=== PATIENT | female | born 1995 | race Caucasian/White ===

== ENCOUNTER 2020-10-20 14:32 | Inpatient (IN) | payer OTHER ==
[2020-10-20 16:20] VITALS: BMI 37.5
[2020-10-20] MEDS ORDERED: MAGNESIUM CITRATE 300 ML BOTTLE PO PRN (19:34)
[2020-10-20] MEDS ORDERED: MAG HYDROX/AL HYDROX/SIMETH 30 ML UNIT-DOSE CUP PO PRN (19:34)
[2020-10-20] MEDS ORDERED: MAGNESIUM HYDROX 2400MG/30ML ORAL SUSPENSION 30 ML CUP PO PRN (19:34)
[2020-10-20] MEDS ORDERED: ONDANSETRON *ODT* 4 MG TABLET SL PRN (19:34)
[2020-10-20] MEDS ORDERED: MENTHOL/PHENOL 1 EACH UD MM PRN (19:34)
[2020-10-20] MEDS ORDERED: ACETAMINOPHEN 325 MG TABLET (FP) PO PRN ×2 (19:34)
[2020-10-20] MEDS ORDERED: NICOTINE POLACRILEX 2 MG GUM BUC PRN (19:34)
[2020-10-20] MEDS ORDERED: BISMUTH SUBSALICYLATE 524 MG/30 ML PO PRN (19:34)
[2020-10-21] MEDS: PRENATAL VITAMINS W/ FOLIC ACID TABLET (FP) PO SCH ×2 (02:06→10:47)
[2020-10-21] MEDS: DOCUSATE SODIUM 100 MG CAPSULE (FP) PO SCH ×4 (02:06→22:03)
[2020-10-21] MEDS: NICOTINE 14 MG/24 HOURS TOPICAL PATCH TD SCH ×2 (02:06→10:47)
[2020-10-21] MEDS: MELATONIN 5 MG TABLETS PO SCH ×2 (02:06→22:02)
[2020-10-21] MEDS ORDERED: TUBERCULIN PPD 5 TU/0.1ML VIAL ID ONE (02:10)
[2020-10-21] MEDS: hydrOXYzine PAMOATE 25 MG CAPSULE (FP) PO SCH ×3 (02:17→10:49)
[2020-10-21] MEDS: THIAMINE HCL 100 MG TABLET (FP) PO SCH ×2 (02:17→22:02)
[2020-10-21] MEDS: diazePAM 5 MG TABLET PO SCH ×5 (02:17→22:02)
[2020-10-21] MEDS ORDERED: METHADONE HCL 10 MG TABLET PO SCH (07:30)
[2020-10-21] MEDS ORDERED: METHADONE 40 MG, METHADONE 30 MG PO ONE (08:15)
[2020-10-21] MEDS ORDERED: METHADONE HCL 10 MG TABLET ONE (09:52)
[2020-10-21] MEDS ORDERED: METHADONE HCL 40 MG DISPERSABLE TABLET ONE (09:52)
[2020-10-21] MEDS ORDERED: METHADONE HCL 10 MG TABLET (FOR DETOX USE ONLY) PO SCH (10:00)
[2020-10-21] MEDS: POLYETHYLENE GLYCOL 3350 119 GM BTL PO SCH (11:00)
[2020-10-21 11:34] LABS: HEMATOCRIT 34.6 % (32.4-45.2); HEMOGLOBIN 11.3 GM/dL (10.7-15.3); MCH 28.9 pg (25.7-33.7); MCHC 32.6 g/dl (32.0-36.0); MEAN CELL VOLUME 88.7 fl (80-96); MEAN PLT VOLUME 10.1 fl (7.5-11.1); PLATELET COUNT 343 K/MM3 (134-434); RDW 16.4 % (11.6-15.6); WHITE BLOOD COUNT 6.1 K/mm3 (4.0-10.0)
[2020-10-21 11:41] LABS: ALBUMIN 3.3 g/dl (3.4-5.0)
[2020-10-21 11:43] LABS: BILIRUBIN,TOTAL 0.2 mg/dL (0.2-1); BLOOD UREA NITROGEN 14.8 mg/dL (7-18); TOT PROT 7.2 g/dl (6.4-8.2)
[2020-10-21 11:44] LABS: CALCIUM 9.4 mg/dL (8.5-10.1)
[2020-10-21 11:45] LABS: CREATININE 0.9 mg/dL (0.55-1.3)
[2020-10-21] MEDS ORDERED: hydrOXYzine PAMOATE 25 MG CAPSULE (FP) PO PRN (12:15)
[2020-10-21] MEDS: QUEtiapine FUMARATE 100 MG TABLET (FP) PO SCH (22:02)
[2020-10-22] MEDS ORDERED: METHADONE HCL 10 MG TABLET ONE (04:04)
[2020-10-22] MEDS ORDERED: METHADONE HCL 40 MG DISPERSABLE TABLET ONE (04:05)
[2020-10-22] MEDS: diazePAM 5 MG TABLET PO SCH ×3 (06:01→22:25)
[2020-10-22] MEDS: METHOCARBAMOL 500 MG TABLET PO PRN ×2 (06:02→13:19)
[2020-10-22] MEDS: METHADONE 40 MG, METHADONE 30 MG PO SCH (06:04)
[2020-10-22] MEDS: DOCUSATE SODIUM 100 MG CAPSULE (FP) PO SCH ×3 (06:52→22:39)
[2020-10-22] MEDS: POLYETHYLENE GLYCOL 3350 119 GM BTL PO SCH (09:59)
[2020-10-22] MEDS: diazePAM 5 MG TABLET PO PRN ×2 (10:00→17:58)
[2020-10-22] MEDS: FLUoxetine HCL 20 MG CAPSULE PO SCH (10:00)
[2020-10-22] MEDS: PRENATAL VITAMINS W/ FOLIC ACID TABLET (FP) PO SCH (10:00)
[2020-10-22] MEDS: NICOTINE 14 MG/24 HOURS TOPICAL PATCH TD SCH (10:01)
[2020-10-22] MEDS: MELATONIN 5 MG TABLETS PO SCH (22:25)
[2020-10-22] MEDS: QUEtiapine FUMARATE 100 MG TABLET (FP) PO SCH (22:25)
[2020-10-22] MEDS: THIAMINE HCL 100 MG TABLET (FP) PO SCH (22:25)
[2020-10-23] MEDS ORDERED: METHADONE HCL 10 MG TABLET ONE (04:18)
[2020-10-23] MEDS ORDERED: METHADONE HCL 40 MG DISPERSABLE TABLET ONE (04:18)
[2020-10-23] MEDS: diazePAM 5 MG TABLET PO SCH ×2 (05:51→18:49)
[2020-10-23] MEDS: METHADONE 40 MG, METHADONE 30 MG PO SCH (05:51)
[2020-10-23] MEDS: METHOCARBAMOL 500 MG TABLET PO PRN (05:52)
[2020-10-23] MEDS: DOCUSATE SODIUM 100 MG CAPSULE (FP) PO SCH ×3 (05:54→21:57)
[2020-10-23] MEDS: POLYETHYLENE GLYCOL 3350 119 GM BTL PO SCH (10:17)
[2020-10-23] MEDS: FLUoxetine HCL 20 MG CAPSULE PO SCH (10:17)
[2020-10-23] MEDS: PRENATAL VITAMINS W/ FOLIC ACID TABLET (FP) PO SCH (10:17)
[2020-10-23] MEDS: NICOTINE 14 MG/24 HOURS TOPICAL PATCH TD SCH (10:18)
[2020-10-23] MEDS: diazePAM 5 MG TABLET PO PRN ×2 (10:19→14:04)
[2020-10-23] MEDS: THIAMINE HCL 100 MG TABLET (FP) PO SCH (21:55)
[2020-10-23] MEDS: MELATONIN 5 MG TABLETS PO SCH (21:55)
[2020-10-23] MEDS: QUEtiapine FUMARATE 100 MG TABLET (FP) PO SCH (21:55)
[2020-10-24] MEDS ORDERED: METHADONE HCL 10 MG TABLET ONE (04:38)
[2020-10-24] MEDS ORDERED: METHADONE HCL 40 MG DISPERSABLE TABLET ONE (04:39)
[2020-10-24] MEDS ORDERED: diazePAM 5 MG TABLET PO ONE (06:00)
[2020-10-24] MEDS: METHADONE 40 MG, METHADONE 30 MG PO SCH (07:10)
[2020-10-24] MEDS: METHOCARBAMOL 500 MG TABLET PO PRN (07:11)
[2020-10-24] MEDS: DOCUSATE SODIUM 100 MG CAPSULE (FP) PO SCH ×2 (07:11→13:12)
[2020-10-24] MEDS: FLUoxetine HCL 20 MG CAPSULE PO SCH (09:39)
[2020-10-24] MEDS: PRENATAL VITAMINS W/ FOLIC ACID TABLET (FP) PO SCH (09:39)
[2020-10-24] MEDS: NICOTINE 14 MG/24 HOURS TOPICAL PATCH TD SCH (09:39)
[2020-10-24] MEDS: POLYETHYLENE GLYCOL 3350 119 GM BTL PO SCH (09:39)
[2020-10-24 17:29] VITALS: BP 104/65; PULSE 65; TEMP 97.8
== END 2020-10-24 18:47 | disposition other institution (70) | DRG 561 ==
LOC: YASAS 14:32 → Y3N 10-21 00:26
PROVIDERS: ADMIT Allergy & Immunology; ATTEND Allergy & Immunology
PROC: HZ2ZZZZ Detoxification Services for Substance Abuse Treatment (ICD-10-PCS; principal; 2020-10-21)
DX: O90.9 Complication of the puerperium, unspecified (principal); F13.230 Sedative, hypnotic or anxiolytic dependence with withdrawal, uncomplicated; F11.20 Opioid dependence, uncomplicated; F17.210 Nicotine dependence, cigarettes, uncomplicated; F95.2 Tourette's disorder; F41.8 Other specified anxiety disorders; O86.01 Infection of obstetric surgical wound, superficial incisional site; L30.9 Dermatitis, unspecified; Z62.810 Personal history of physical and sexual abuse in childhood; Z88.0 Allergy status to penicillin
CPT/HCPCS: 36415; 80053; 81025; 85027; 86780; C9803; U0003; U0005

== ENCOUNTER 2020-10-20 21:40 | Emergency (ER) | payer OTHER ==
[2020-10-20 21:55] VITALS: BMI 36.7
[2020-10-20 23:13] VITALS: BP 115/66; PULSE 61; TEMP 97.7
== END 2020-10-20 23:14 ==
LOC: JER 21:40
DX: Z48.00 Encounter for change or removal of nonsurgical wound dressing (principal)
CPT/HCPCS: 99281-25

== ENCOUNTER 2020-10-24 18:50 | Inpatient (IN) | payer OTHER ==
[2020-10-25] MEDS ORDERED: P-EPHED 60MG/TRIPROLIDI 2.5MG TABLET PO PRN (00:59)
[2020-10-25] MEDS ORDERED: ACETAMINOPHEN 325 MG TABLET (FP) PO PRN (00:59)
[2020-10-25] MEDS ORDERED: MENTHOL/PHENOL 1 EACH UD MM PRN (00:59)
[2020-10-25] MEDS ORDERED: MAGNESIUM HYDROX 2400MG/30ML ORAL SUSPENSION 30 ML CUP PO PRN (00:59)
[2020-10-25] MEDS ORDERED: MAGNESIUM CITRATE 300 ML BOTTLE PO PRN (00:59)
[2020-10-25] MEDS ORDERED: guaiFENesin 200 MG/10 ML 10 ML UNIT-DOSE CUPS PO PRN (00:59)
[2020-10-25] MEDS ORDERED: NICOTINE POLACRILEX 2 MG GUM BUC PRN (00:59)
[2020-10-25] MEDS ORDERED: MAG HYDROX/AL HYDROX/SIMETH 30 ML UNIT-DOSE CUP PO PRN (00:59)
[2020-10-25] MEDS ORDERED: LOPERAMIDE HCL 2 MG CAPSULE PO PRN (00:59)
[2020-10-25] MEDS ORDERED: METHADONE HCL 40 MG DISPERSABLE TABLET ONE (06:20)
[2020-10-25] MEDS ORDERED: METHADONE HCL 10 MG TABLET ONE (06:20)
[2020-10-25] MEDS: METHADONE 40 MG, METHADONE 30 MG PO SCH (07:01)
[2020-10-25] MEDS: PRENATAL VITAMINS W/ FOLIC ACID TABLET (FP) PO SCH (10:04)
[2020-10-25] MEDS: hydrOXYzine PAMOATE 25 MG CAPSULE (FP) PO PRN (10:05)
[2020-10-25] MEDS ORDERED: MASKS NR ONE (10:06)
[2020-10-25] MEDS: NICOTINE 14 MG/24 HOURS TOPICAL PATCH TD SCH (10:59)
[2020-10-25] MEDS: FLUoxetine HCL 20 MG CAPSULE PO SCH (13:32)
[2020-10-25] MEDS: THIAMINE HCL 100 MG TABLET (FP) PO SCH (21:32)
[2020-10-25] MEDS: MELATONIN 5 MG TABLETS PO SCH (21:32)
[2020-10-25] MEDS: QUEtiapine FUMARATE 100 MG TABLET (FP) PO SCH (21:32)
[2020-10-26] MEDS ORDERED: METHADONE HCL 10 MG TABLET ONE (02:19)
[2020-10-26] MEDS ORDERED: METHADONE HCL 40 MG DISPERSABLE TABLET ONE (02:20)
[2020-10-26] MEDS: METHADONE 40 MG, METHADONE 30 MG PO SCH (06:23)
[2020-10-26] MEDS: PRENATAL VITAMINS W/ FOLIC ACID TABLET (FP) PO SCH (10:44)
[2020-10-26] MEDS: NICOTINE 14 MG/24 HOURS TOPICAL PATCH TD SCH (10:44)
[2020-10-26] MEDS: FLUoxetine HCL 20 MG CAPSULE PO SCH (10:45)
[2020-10-26] MEDS: IBUPROFEN 400 MG TABLET (FP) PO PRN (10:45)
[2020-10-26] MEDS: hydrOXYzine PAMOATE 25 MG CAPSULE (FP) PO PRN (10:45)
[2020-10-26] MEDS: MELATONIN 5 MG TABLETS PO SCH (21:43)
[2020-10-26] MEDS: QUEtiapine FUMARATE 100 MG TABLET (FP) PO SCH (21:44)
[2020-10-26] MEDS: THIAMINE HCL 100 MG TABLET (FP) PO SCH (21:44)
[2020-10-27] MEDS ORDERED: METHADONE HCL 10 MG TABLET ONE (03:21)
[2020-10-27] MEDS ORDERED: METHADONE HCL 40 MG DISPERSABLE TABLET ONE (03:22)
[2020-10-27] MEDS: METHADONE 40 MG, METHADONE 30 MG PO SCH (06:26)
[2020-10-27] MEDS: PRENATAL VITAMINS W/ FOLIC ACID TABLET (FP) PO SCH (10:30)
[2020-10-27] MEDS: FLUoxetine HCL 20 MG CAPSULE PO SCH (10:31)
[2020-10-27] MEDS: hydrOXYzine PAMOATE 25 MG CAPSULE (FP) PO PRN (10:31)
[2020-10-27] MEDS: IBUPROFEN 400 MG TABLET (FP) PO PRN (10:31)
[2020-10-27] MEDS: NICOTINE 14 MG/24 HOURS TOPICAL PATCH TD SCH (10:31)
[2020-10-27] MEDS: MELATONIN 5 MG TABLETS PO SCH (21:47)
[2020-10-27] MEDS: THIAMINE HCL 100 MG TABLET (FP) PO SCH (21:47)
[2020-10-27] MEDS: QUEtiapine FUMARATE 100 MG TABLET (FP) PO SCH (21:48)
[2020-10-28] MEDS ORDERED: METHADONE HCL 10 MG TABLET ONE (03:26)
[2020-10-28] MEDS ORDERED: METHADONE HCL 40 MG DISPERSABLE TABLET ONE (03:26)
[2020-10-28] MEDS: METHADONE 40 MG, METHADONE 30 MG PO SCH (06:33)
[2020-10-28] MEDS: FLUoxetine HCL 20 MG CAPSULE PO SCH (10:20)
[2020-10-28] MEDS: NICOTINE 14 MG/24 HOURS TOPICAL PATCH TD SCH (10:20)
[2020-10-28] MEDS: PRENATAL VITAMINS W/ FOLIC ACID TABLET (FP) PO SCH (10:20)
[2020-10-28] MEDS: THIAMINE HCL 100 MG TABLET (FP) PO SCH (21:43)
[2020-10-28] MEDS: QUEtiapine FUMARATE 100 MG TABLET (FP) PO SCH (21:43)
[2020-10-28] MEDS: MELATONIN 5 MG TABLETS PO SCH (21:43)
[2020-10-29] MEDS ORDERED: METHADONE HCL 10 MG TABLET ONE (03:28)
[2020-10-29] MEDS ORDERED: METHADONE HCL 40 MG DISPERSABLE TABLET ONE (03:28)
[2020-10-29] MEDS: METHADONE 40 MG, METHADONE 30 MG PO SCH (06:22)
[2020-10-29] MEDS: NICOTINE 14 MG/24 HOURS TOPICAL PATCH TD SCH (10:23)
[2020-10-29] MEDS: FLUoxetine HCL 20 MG CAPSULE PO SCH (10:23)
[2020-10-29] MEDS: PRENATAL VITAMINS W/ FOLIC ACID TABLET (FP) PO SCH (10:23)
[2020-10-29] MEDS: hydrOXYzine PAMOATE 25 MG CAPSULE (FP) PO PRN ×2 (10:25→17:08)
[2020-10-29] MEDS: QUEtiapine FUMARATE 100 MG TABLET (FP) PO SCH (21:35)
[2020-10-29] MEDS: THIAMINE HCL 100 MG TABLET (FP) PO SCH (21:35)
[2020-10-29] MEDS: MELATONIN 5 MG TABLETS PO SCH (21:35)
[2020-10-30] MEDS ORDERED: METHADONE HCL 10 MG TABLET ONE (06:26)
[2020-10-30] MEDS: METHADONE 40 MG, METHADONE 30 MG PO SCH (06:27)
[2020-10-30] MEDS ORDERED: METHADONE HCL 40 MG DISPERSABLE TABLET ONE (06:27)
[2020-10-30] MEDS: FLUoxetine HCL 20 MG CAPSULE PO SCH (10:45)
[2020-10-30] MEDS: hydrOXYzine PAMOATE 25 MG CAPSULE (FP) PO PRN (10:45)
[2020-10-30] MEDS: PRENATAL VITAMINS W/ FOLIC ACID TABLET (FP) PO SCH (10:45)
[2020-10-30] MEDS: NICOTINE 14 MG/24 HOURS TOPICAL PATCH TD SCH (10:45)
[2020-10-30] MEDS ORDERED: MASKS NR ONE (12:51)
[2020-10-30] MEDS: THIAMINE HCL 100 MG TABLET (FP) PO SCH (21:33)
[2020-10-30] MEDS: QUEtiapine FUMARATE 100 MG TABLET (FP) PO SCH (21:33)
[2020-10-30] MEDS: MELATONIN 5 MG TABLETS PO SCH (21:33)
[2020-10-31] MEDS ORDERED: METHADONE HCL 40 MG DISPERSABLE TABLET ONE (04:46)
[2020-10-31] MEDS ORDERED: METHADONE HCL 10 MG TABLET ONE (04:46)
[2020-10-31] MEDS: METHADONE 40 MG, METHADONE 30 MG PO SCH (06:36)
[2020-10-31] MEDS: FLUoxetine HCL 20 MG CAPSULE PO SCH (10:29)
[2020-10-31] MEDS: PRENATAL VITAMINS W/ FOLIC ACID TABLET (FP) PO SCH (10:29)
[2020-10-31] MEDS: NICOTINE 14 MG/24 HOURS TOPICAL PATCH TD SCH (10:29)
[2020-10-31] MEDS: hydrOXYzine PAMOATE 25 MG CAPSULE (FP) PO PRN ×2 (10:29→19:05)
[2020-10-31] MEDS: QUEtiapine FUMARATE 100 MG TABLET (FP) PO SCH (21:21)
[2020-10-31] MEDS: MELATONIN 5 MG TABLETS PO SCH (21:21)
[2020-10-31] MEDS: THIAMINE HCL 100 MG TABLET (FP) PO SCH (21:21)
[2020-11-01] MEDS ORDERED: METHADONE HCL 10 MG TABLET ONE (05:12)
[2020-11-01] MEDS ORDERED: METHADONE HCL 40 MG DISPERSABLE TABLET ONE (05:12)
[2020-11-01] MEDS: METHADONE 40 MG, METHADONE 30 MG PO SCH (06:28)
[2020-11-01] MEDS: NICOTINE 14 MG/24 HOURS TOPICAL PATCH TD SCH (10:05)
[2020-11-01] MEDS: FLUoxetine HCL 20 MG CAPSULE PO SCH (10:05)
[2020-11-01] MEDS: PRENATAL VITAMINS W/ FOLIC ACID TABLET (FP) PO SCH (10:05)
[2020-11-01] MEDS: hydrOXYzine PAMOATE 25 MG CAPSULE (FP) PO PRN (10:06)
[2020-11-01] MEDS: QUEtiapine FUMARATE 100 MG TABLET (FP) PO SCH (21:21)
[2020-11-01] MEDS: THIAMINE HCL 100 MG TABLET (FP) PO SCH (21:21)
[2020-11-01] MEDS: MELATONIN 5 MG TABLETS PO SCH (21:21)
[2020-11-02] MEDS ORDERED: METHADONE HCL 10 MG TABLET ONE (03:28)
[2020-11-02] MEDS ORDERED: METHADONE HCL 40 MG DISPERSABLE TABLET ONE (03:28)
[2020-11-02] MEDS: METHADONE 40 MG, METHADONE 30 MG PO SCH (06:06)
[2020-11-02] MEDS: PRENATAL VITAMINS W/ FOLIC ACID TABLET (FP) PO SCH (10:05)
[2020-11-02] MEDS: FLUoxetine HCL 20 MG CAPSULE PO SCH (10:05)
[2020-11-02] MEDS: NICOTINE 14 MG/24 HOURS TOPICAL PATCH TD SCH (10:05)
[2020-11-02] MEDS: hydrOXYzine PAMOATE 25 MG CAPSULE (FP) PO PRN ×2 (10:06→21:17)
[2020-11-02] MEDS: QUEtiapine FUMARATE 100 MG TABLET (FP) PO SCH (21:16)
[2020-11-02] MEDS: THIAMINE HCL 100 MG TABLET (FP) PO SCH (21:16)
[2020-11-02] MEDS: MELATONIN 5 MG TABLETS PO SCH (21:16)
[2020-11-03] MEDS ORDERED: METHADONE HCL 10 MG TABLET ONE (03:50)
[2020-11-03] MEDS ORDERED: METHADONE HCL 40 MG DISPERSABLE TABLET ONE (03:50)
[2020-11-03] MEDS: METHADONE 40 MG, METHADONE 30 MG PO SCH (06:27)
[2020-11-03] MEDS: NICOTINE 14 MG/24 HOURS TOPICAL PATCH TD SCH (10:11)
[2020-11-03] MEDS: PRENATAL VITAMINS W/ FOLIC ACID TABLET (FP) PO SCH (10:11)
[2020-11-03] MEDS: FLUoxetine HCL 20 MG CAPSULE PO SCH (10:12)
[2020-11-03] MEDS: hydrOXYzine PAMOATE 25 MG CAPSULE (FP) PO PRN ×2 (10:12→21:38)
[2020-11-03] MEDS: QUEtiapine FUMARATE 100 MG TABLET (FP) PO SCH (21:38)
[2020-11-03] MEDS: THIAMINE HCL 100 MG TABLET (FP) PO SCH (21:38)
[2020-11-03] MEDS: MELATONIN 5 MG TABLETS PO SCH (21:38)
[2020-11-04] MEDS ORDERED: METHADONE HCL 10 MG TABLET ONE (05:31)
[2020-11-04] MEDS ORDERED: METHADONE HCL 40 MG DISPERSABLE TABLET ONE (05:31)
[2020-11-04] MEDS: METHADONE 40 MG, METHADONE 30 MG PO SCH (06:33)
[2020-11-04] MEDS: PRENATAL VITAMINS W/ FOLIC ACID TABLET (FP) PO SCH (10:38)
[2020-11-04] MEDS: NICOTINE 14 MG/24 HOURS TOPICAL PATCH TD SCH (10:38)
[2020-11-04] MEDS: FLUoxetine HCL 20 MG CAPSULE PO SCH (10:39)
[2020-11-04] MEDS ORDERED: MASKS NR ONE (10:39)
[2020-11-04] MEDS: hydrOXYzine PAMOATE 25 MG CAPSULE (FP) PO PRN ×2 (10:39→17:53)
[2020-11-04] MEDS: THIAMINE HCL 100 MG TABLET (FP) PO SCH (21:24)
[2020-11-04] MEDS: MELATONIN 5 MG TABLETS PO SCH (21:25)
[2020-11-04] MEDS: QUEtiapine FUMARATE 100 MG TABLET (FP) PO SCH (21:25)
[2020-11-05] MEDS ORDERED: METHADONE HCL 10 MG TABLET ONE (04:20)
[2020-11-05] MEDS ORDERED: METHADONE HCL 40 MG DISPERSABLE TABLET ONE (04:21)
[2020-11-05] MEDS: METHADONE 40 MG, METHADONE 30 MG PO SCH (06:36)
[2020-11-05] MEDS: hydrOXYzine PAMOATE 25 MG CAPSULE (FP) PO PRN ×2 (06:38→17:14)
[2020-11-05] MEDS: FLUoxetine HCL 20 MG CAPSULE PO SCH (10:10)
[2020-11-05] MEDS: PRENATAL VITAMINS W/ FOLIC ACID TABLET (FP) PO SCH (10:10)
[2020-11-05] MEDS: NICOTINE 14 MG/24 HOURS TOPICAL PATCH TD SCH (10:11)
[2020-11-05] MEDS: IBUPROFEN 400 MG TABLET (FP) PO PRN ×2 (10:13→17:46)
[2020-11-05] MEDS: THIAMINE HCL 100 MG TABLET (FP) PO SCH (21:20)
[2020-11-05] MEDS: QUEtiapine FUMARATE 100 MG TABLET (FP) PO SCH (21:20)
[2020-11-05] MEDS: MELATONIN 5 MG TABLETS PO SCH (21:21)
[2020-11-06] MEDS ORDERED: METHADONE HCL 40 MG DISPERSABLE TABLET ONE (03:19)
[2020-11-06] MEDS ORDERED: METHADONE HCL 10 MG TABLET ONE (03:19)
[2020-11-06] MEDS: METHADONE 40 MG, METHADONE 30 MG PO SCH (06:30)
[2020-11-06] MEDS: hydrOXYzine PAMOATE 25 MG CAPSULE (FP) PO PRN ×3 (06:31→18:51)
[2020-11-06] MEDS: IBUPROFEN 400 MG TABLET (FP) PO PRN (06:32)
[2020-11-06] MEDS: FLUoxetine HCL 20 MG CAPSULE PO SCH (10:26)
[2020-11-06] MEDS: NICOTINE 14 MG/24 HOURS TOPICAL PATCH TD SCH (10:26)
[2020-11-06] MEDS: PRENATAL VITAMINS W/ FOLIC ACID TABLET (FP) PO SCH (10:26)
[2020-11-06] MEDS: THIAMINE HCL 100 MG TABLET (FP) PO SCH (21:20)
[2020-11-06] MEDS: QUEtiapine FUMARATE 100 MG TABLET (FP) PO SCH (21:20)
[2020-11-06] MEDS: MELATONIN 5 MG TABLETS PO SCH (21:20)
[2020-11-07] MEDS ORDERED: METHADONE HCL 10 MG TABLET ONE (05:03)
[2020-11-07] MEDS ORDERED: METHADONE HCL 40 MG DISPERSABLE TABLET ONE (05:03)
[2020-11-07] MEDS: METHADONE 40 MG, METHADONE 30 MG PO SCH (06:21)
[2020-11-07] MEDS: PRENATAL VITAMINS W/ FOLIC ACID TABLET (FP) PO SCH (09:14)
[2020-11-07] MEDS: NICOTINE 14 MG/24 HOURS TOPICAL PATCH TD SCH (09:15)
[2020-11-07] MEDS: FLUoxetine HCL 20 MG CAPSULE PO SCH (09:15)
[2020-11-07] MEDS: hydrOXYzine PAMOATE 25 MG CAPSULE (FP) PO PRN ×2 (09:16→17:18)
[2020-11-07] MEDS ORDERED: NICOTINE 14 MG/24 HOURS TOPICAL PATCH TD ONE (12:45)
[2020-11-07] MEDS: MELATONIN 5 MG TABLETS PO SCH (21:29)
[2020-11-07] MEDS: THIAMINE HCL 100 MG TABLET (FP) PO SCH (21:29)
[2020-11-07] MEDS: QUEtiapine FUMARATE 100 MG TABLET (FP) PO SCH (21:29)
[2020-11-08] MEDS ORDERED: METHADONE HCL 40 MG DISPERSABLE TABLET ONE (04:09)
[2020-11-08] MEDS ORDERED: METHADONE HCL 10 MG TABLET ONE (04:09)
[2020-11-08] MEDS: METHADONE 40 MG, METHADONE 30 MG PO SCH (06:27)
[2020-11-08] MEDS: NICOTINE 14 MG/24 HOURS TOPICAL PATCH TD SCH (10:16)
[2020-11-08] MEDS: PRENATAL VITAMINS W/ FOLIC ACID TABLET (FP) PO SCH (10:16)
[2020-11-08] MEDS: hydrOXYzine PAMOATE 25 MG CAPSULE (FP) PO PRN ×2 (10:17→19:27)
[2020-11-08] MEDS: IBUPROFEN 600 MG TABLET (FP) PO PRN (10:17)
[2020-11-08] MEDS: FLUoxetine HCL 20 MG CAPSULE PO SCH (10:17)
[2020-11-08] MEDS: THIAMINE HCL 100 MG TABLET (FP) PO SCH (21:34)
[2020-11-08] MEDS: MELATONIN 5 MG TABLETS PO SCH (21:34)
[2020-11-08] MEDS: QUEtiapine FUMARATE 100 MG TABLET (FP) PO SCH (21:34)
[2020-11-09] MEDS ORDERED: METHADONE HCL 40 MG DISPERSABLE TABLET ONE (02:13)
[2020-11-09] MEDS ORDERED: METHADONE HCL 10 MG TABLET ONE (02:13)
[2020-11-09] MEDS: METHADONE 40 MG, METHADONE 30 MG PO SCH (06:25)
[2020-11-09] MEDS: hydrOXYzine PAMOATE 25 MG CAPSULE (FP) PO PRN ×3 (10:14→22:51)
[2020-11-09] MEDS: NICOTINE 14 MG/24 HOURS TOPICAL PATCH TD SCH (10:14)
[2020-11-09] MEDS: PRENATAL VITAMINS W/ FOLIC ACID TABLET (FP) PO SCH (10:14)
[2020-11-09] MEDS: FLUoxetine HCL 20 MG CAPSULE PO SCH (10:14)
[2020-11-09] MEDS ORDERED: COLLOIDAL OATMEAL 1 BAR EACH TP PRN (12:11)
[2020-11-09] MEDS: IBUPROFEN 600 MG TABLET (FP) PO PRN (16:01)
[2020-11-09] MEDS: THIAMINE HCL 100 MG TABLET (FP) PO SCH (21:38)
[2020-11-09] MEDS: QUEtiapine FUMARATE 100 MG TABLET (FP) PO SCH (21:38)
[2020-11-09] MEDS: MELATONIN 5 MG TABLETS PO SCH (21:39)
[2020-11-10] MEDS ORDERED: METHADONE HCL 10 MG TABLET ONE (05:06)
[2020-11-10] MEDS ORDERED: METHADONE HCL 40 MG DISPERSABLE TABLET ONE (05:07)
[2020-11-10] MEDS: METHADONE 40 MG, METHADONE 30 MG PO SCH (06:42)
[2020-11-10] MEDS: FLUoxetine HCL 20 MG CAPSULE PO SCH (10:14)
[2020-11-10] MEDS: PRENATAL VITAMINS W/ FOLIC ACID TABLET (FP) PO SCH (10:14)
[2020-11-10] MEDS: NICOTINE 14 MG/24 HOURS TOPICAL PATCH TD SCH (10:14)
[2020-11-10] MEDS: hydrOXYzine PAMOATE 25 MG CAPSULE (FP) PO PRN ×2 (10:15→18:34)
[2020-11-10] MEDS: THIAMINE HCL 100 MG TABLET (FP) PO SCH (21:56)
[2020-11-10] MEDS: QUEtiapine FUMARATE 200 MG TABLET PO SCH (21:56)
[2020-11-10] MEDS: SUVOREXANT 5 MG TABLET PO PRN (21:59)
[2020-11-11] MEDS ORDERED: METHADONE HCL 10 MG TABLET ONE (05:23)
[2020-11-11] MEDS ORDERED: METHADONE HCL 40 MG DISPERSABLE TABLET ONE (05:23)
[2020-11-11] MEDS: METHADONE 40 MG, METHADONE 30 MG PO SCH (06:19)
[2020-11-11] MEDS: FLUoxetine HCL 10 MG CAPSULE PO SCH (10:07)
[2020-11-11] MEDS: PRENATAL VITAMINS W/ FOLIC ACID TABLET (FP) PO SCH (10:07)
[2020-11-11] MEDS: NICOTINE 14 MG/24 HOURS TOPICAL PATCH TD SCH (10:08)
[2020-11-11] MEDS: hydrOXYzine PAMOATE 25 MG CAPSULE (FP) PO PRN ×2 (10:09→17:58)
[2020-11-11] MEDS: QUEtiapine FUMARATE 200 MG TABLET PO SCH (21:55)
[2020-11-11] MEDS: THIAMINE HCL 100 MG TABLET (FP) PO SCH (21:55)
[2020-11-11] MEDS: SUVOREXANT 5 MG TABLET PO PRN (21:56)
[2020-11-12] MEDS ORDERED: METHADONE HCL 10 MG TABLET ONE (02:55)
[2020-11-12] MEDS ORDERED: METHADONE HCL 40 MG DISPERSABLE TABLET ONE (02:55)
[2020-11-12] MEDS: METHADONE 40 MG, METHADONE 30 MG PO SCH (06:36)
[2020-11-12] MEDS: FLUoxetine HCL 10 MG CAPSULE PO SCH (10:25)
[2020-11-12] MEDS: PRENATAL VITAMINS W/ FOLIC ACID TABLET (FP) PO SCH (10:25)
[2020-11-12] MEDS: hydrOXYzine PAMOATE 25 MG CAPSULE (FP) PO PRN ×3 (10:25→22:05)
[2020-11-12] MEDS: NICOTINE 14 MG/24 HOURS TOPICAL PATCH TD SCH (10:25)
[2020-11-12] MEDS: THIAMINE HCL 100 MG TABLET (FP) PO SCH (22:03)
[2020-11-12] MEDS: QUEtiapine FUMARATE 200 MG TABLET PO SCH (22:03)
[2020-11-12] MEDS: SUVOREXANT 5 MG TABLET PO PRN (22:04)
[2020-11-13] MEDS ORDERED: METHADONE HCL 10 MG TABLET ONE (06:13)
[2020-11-13] MEDS ORDERED: METHADONE HCL 40 MG DISPERSABLE TABLET ONE (06:13)
[2020-11-13] MEDS: METHADONE 40 MG, METHADONE 30 MG PO SCH (06:17)
[2020-11-13] MEDS: PRENATAL VITAMINS W/ FOLIC ACID TABLET (FP) PO SCH (10:12)
[2020-11-13] MEDS: FLUoxetine HCL 10 MG CAPSULE PO SCH (10:12)
[2020-11-13] MEDS: hydrOXYzine PAMOATE 25 MG CAPSULE (FP) PO PRN ×3 (10:14→21:28)
[2020-11-13] MEDS: NICOTINE 14 MG/24 HOURS TOPICAL PATCH TD SCH (10:14)
[2020-11-13] MEDS ORDERED: PT OWN MED DRAWER 7, Y5N ONE (10:31)
[2020-11-13] MEDS: QUEtiapine FUMARATE 200 MG TABLET PO SCH (21:28)
[2020-11-13] MEDS: THIAMINE HCL 100 MG TABLET (FP) PO SCH (21:28)
[2020-11-13] MEDS: SUVOREXANT 5 MG TABLET PO PRN (21:28)
[2020-11-14] MEDS ORDERED: METHADONE HCL 10 MG TABLET ONE (04:31)
[2020-11-14] MEDS ORDERED: METHADONE HCL 40 MG DISPERSABLE TABLET ONE (04:32)
[2020-11-14] MEDS: METHADONE 40 MG, METHADONE 30 MG PO SCH (06:17)
[2020-11-14] MEDS: PRENATAL VITAMINS W/ FOLIC ACID TABLET (FP) PO SCH (10:02)
[2020-11-14] MEDS: hydrOXYzine PAMOATE 25 MG CAPSULE (FP) PO PRN ×2 (10:02→18:34)
[2020-11-14] MEDS: NICOTINE 14 MG/24 HOURS TOPICAL PATCH TD SCH (10:02)
[2020-11-14] MEDS: FLUoxetine HCL 10 MG CAPSULE PO SCH (10:03)
[2020-11-14] MEDS: THIAMINE HCL 100 MG TABLET (FP) PO SCH (21:37)
[2020-11-14] MEDS: SUVOREXANT 5 MG TABLET PO PRN (21:37)
[2020-11-14] MEDS: QUEtiapine FUMARATE 200 MG TABLET PO SCH (21:37)
[2020-11-15] MEDS ORDERED: METHADONE HCL 10 MG TABLET ONE (03:58)
[2020-11-15] MEDS ORDERED: METHADONE HCL 40 MG DISPERSABLE TABLET ONE (03:58)
[2020-11-15] MEDS: METHADONE 40 MG, METHADONE 30 MG PO SCH (06:15)
[2020-11-15] MEDS: PRENATAL VITAMINS W/ FOLIC ACID TABLET (FP) PO SCH (10:14)
[2020-11-15] MEDS: FLUoxetine HCL 10 MG CAPSULE PO SCH (10:14)
[2020-11-15] MEDS: NICOTINE 14 MG/24 HOURS TOPICAL PATCH TD SCH (10:15)
[2020-11-15] MEDS: hydrOXYzine PAMOATE 25 MG CAPSULE (FP) PO PRN ×2 (10:16→16:55)
[2020-11-15] MEDS: THIAMINE HCL 100 MG TABLET (FP) PO SCH (22:17)
[2020-11-15] MEDS: QUEtiapine FUMARATE 200 MG TABLET PO SCH (22:17)
[2020-11-15] MEDS: SUVOREXANT 5 MG TABLET PO PRN (22:19)
[2020-11-16] MEDS ORDERED: METHADONE HCL 40 MG DISPERSABLE TABLET ONE (03:44)
[2020-11-16] MEDS ORDERED: METHADONE HCL 10 MG TABLET ONE (03:44)
[2020-11-16] MEDS: METHADONE 40 MG, METHADONE 30 MG PO SCH (06:35)
[2020-11-16] MEDS: PRENATAL VITAMINS W/ FOLIC ACID TABLET (FP) PO SCH (10:25)
[2020-11-16] MEDS: hydrOXYzine PAMOATE 25 MG CAPSULE (FP) PO PRN ×2 (10:26→18:22)
[2020-11-16] MEDS: FLUoxetine HCL 10 MG CAPSULE PO SCH (10:26)
[2020-11-16] MEDS: NICOTINE 14 MG/24 HOURS TOPICAL PATCH TD SCH (10:26)
[2020-11-16] MEDS: SUVOREXANT 5 MG TABLET PO PRN (21:36)
[2020-11-16] MEDS: THIAMINE HCL 100 MG TABLET (FP) PO SCH (21:37)
[2020-11-16] MEDS: QUEtiapine FUMARATE 200 MG TABLET PO SCH (21:37)
[2020-11-17] MEDS ORDERED: METHADONE HCL 40 MG DISPERSABLE TABLET ONE (02:23)
[2020-11-17] MEDS ORDERED: METHADONE HCL 10 MG TABLET ONE (02:23)
[2020-11-17] MEDS: METHADONE 40 MG, METHADONE 30 MG PO SCH (06:29)
[2020-11-17] MEDS: hydrOXYzine PAMOATE 25 MG CAPSULE (FP) PO PRN ×3 (10:23→21:57)
[2020-11-17] MEDS: FLUoxetine HCL 10 MG CAPSULE PO SCH (10:23)
[2020-11-17] MEDS: PRENATAL VITAMINS W/ FOLIC ACID TABLET (FP) PO SCH (10:23)
[2020-11-17] MEDS: NICOTINE 14 MG/24 HOURS TOPICAL PATCH TD SCH (10:23)
[2020-11-17] MEDS: IBUPROFEN 600 MG TABLET (FP) PO PRN (10:24)
[2020-11-17] MEDS: THIAMINE HCL 100 MG TABLET (FP) PO SCH (21:56)
[2020-11-17] MEDS: QUEtiapine FUMARATE 200 MG TABLET PO SCH (21:56)
[2020-11-18] MEDS ORDERED: METHADONE HCL 40 MG DISPERSABLE TABLET ONE (02:56)
[2020-11-18] MEDS ORDERED: METHADONE HCL 10 MG TABLET ONE (02:56)
[2020-11-18] MEDS: METHADONE 40 MG, METHADONE 30 MG PO SCH (06:18)
[2020-11-18] MEDS: NICOTINE 14 MG/24 HOURS TOPICAL PATCH TD SCH (10:06)
[2020-11-18] MEDS: PRENATAL VITAMINS W/ FOLIC ACID TABLET (FP) PO SCH (10:06)
[2020-11-18] MEDS: FLUoxetine HCL 10 MG CAPSULE PO SCH (10:07)
[2020-11-18] MEDS: hydrOXYzine PAMOATE 25 MG CAPSULE (FP) PO PRN ×2 (10:07→17:36)
[2020-11-18] MEDS: THIAMINE HCL 100 MG TABLET (FP) PO SCH (21:59)
[2020-11-18] MEDS: QUEtiapine FUMARATE 200 MG TABLET PO SCH (21:59)
[2020-11-18] MEDS: SUVOREXANT 10 MG TABLET PO PRN (22:00)
[2020-11-19] MEDS ORDERED: METHADONE HCL 10 MG TABLET ONE (06:25)
[2020-11-19] MEDS ORDERED: METHADONE HCL 40 MG DISPERSABLE TABLET ONE (06:26)
[2020-11-19] MEDS: METHADONE 40 MG, METHADONE 30 MG PO SCH (06:26)
[2020-11-19] MEDS: PRENATAL VITAMINS W/ FOLIC ACID TABLET (FP) PO SCH (10:42)
[2020-11-19] MEDS: NICOTINE 14 MG/24 HOURS TOPICAL PATCH TD SCH (10:42)
[2020-11-19] MEDS: hydrOXYzine PAMOATE 25 MG CAPSULE (FP) PO PRN ×2 (10:43→18:00)
[2020-11-19] MEDS: FLUoxetine HCL 10 MG CAPSULE PO SCH (10:43)
[2020-11-19] MEDS: SUVOREXANT 10 MG TABLET PO PRN (21:46)
[2020-11-19] MEDS: THIAMINE HCL 100 MG TABLET (FP) PO SCH (21:47)
[2020-11-19] MEDS: QUEtiapine FUMARATE 200 MG TABLET PO SCH (21:47)
[2020-11-20] MEDS ORDERED: METHADONE HCL 40 MG DISPERSABLE TABLET ONE (02:44)
[2020-11-20] MEDS ORDERED: METHADONE HCL 10 MG TABLET ONE (02:44)
[2020-11-20] MEDS: METHADONE 40 MG, METHADONE 30 MG PO SCH (06:36)
[2020-11-20] MEDS: NICOTINE 14 MG/24 HOURS TOPICAL PATCH TD SCH (10:39)
[2020-11-20] MEDS: PRENATAL VITAMINS W/ FOLIC ACID TABLET (FP) PO SCH (10:39)
[2020-11-20] MEDS: FLUoxetine HCL 10 MG CAPSULE PO SCH (10:39)
[2020-11-20] MEDS: hydrOXYzine PAMOATE 25 MG CAPSULE (FP) PO PRN ×2 (10:40→18:11)
[2020-11-20] MEDS: SUVOREXANT 10 MG TABLET PO PRN (21:23)
[2020-11-20] MEDS: QUEtiapine FUMARATE 200 MG TABLET PO SCH (21:23)
[2020-11-20] MEDS: THIAMINE HCL 100 MG TABLET (FP) PO SCH (21:23)
[2020-11-21] MEDS ORDERED: METHADONE HCL 40 MG DISPERSABLE TABLET ONE (04:33)
[2020-11-21] MEDS ORDERED: METHADONE HCL 10 MG TABLET ONE (04:33)
[2020-11-21] MEDS: METHADONE 40 MG, METHADONE 30 MG PO SCH (06:47)
[2020-11-21 08:12] VITALS: BP 113/78; PULSE 84; TEMP 96.9
[2020-11-21] MEDS: PRENATAL VITAMINS W/ FOLIC ACID TABLET (FP) PO SCH (10:32)
[2020-11-21] MEDS: NICOTINE 14 MG/24 HOURS TOPICAL PATCH TD SCH (10:33)
[2020-11-21] MEDS: FLUoxetine HCL 10 MG CAPSULE PO SCH (10:33)
[2020-11-21] MEDS: hydrOXYzine PAMOATE 25 MG CAPSULE (FP) PO PRN ×2 (10:33→17:49)
== END 2020-11-21 17:50 | disposition home or self-care (01) | DRG 772 ==
LOC: YASAS 18:50 → Y5N 18:51
PROVIDERS: ADMIT Allergy & Immunology; ATTEND Allergy & Immunology
PROC: HZ42ZZZ Group Counseling for Substance Abuse Treatment, Cognitive-Behavioral (ICD-10-PCS; principal; 2020-10-24)
DX: F11.20 Opioid dependence, uncomplicated (principal); F13.20 Sedative, hypnotic or anxiolytic dependence, uncomplicated; F17.210 Nicotine dependence, cigarettes, uncomplicated; F95.2 Tourette's disorder; F41.9 Anxiety disorder, unspecified; G40.509 Epileptic seizures related to external causes, not intractable, without status epilepticus; G47.00 Insomnia, unspecified; O86.01 Infection of obstetric surgical wound, superficial incisional site; L30.9 Dermatitis, unspecified; E66.9 Obesity, unspecified; Z62.810 Personal history of physical and sexual abuse in childhood; Z91.410 Personal history of adult physical and sexual abuse

== ENCOUNTER 2021-10-13 10:07 | Inpatient (IN) | payer OTHER ==
[2021-10-13 10:32] VITALS: BMI 22.0
[2021-10-13] MEDS ORDERED: MAGNESIUM CITRATE 300 ML BOTTLE PO PRN (12:57)
[2021-10-13] MEDS ORDERED: guaiFENesin 200 MG/10 ML 10 ML UNIT-DOSE CUPS PO PRN (12:57)
[2021-10-13] MEDS ORDERED: MAGNESIUM HYDROX 2400MG/30ML ORAL SUSPENSION 30 ML CUP PO PRN (12:57)
[2021-10-13] MEDS ORDERED: LOPERAMIDE HCL 2 MG CAPSULE PO PRN (12:57)
[2021-10-13] MEDS ORDERED: P-EPHED 60MG/TRIPROLIDI 2.5MG TABLET PO PRN (12:57)
[2021-10-13] MEDS ORDERED: MAG HYDROX/AL HYDROX/SIMETH 30 ML UNIT-DOSE CUP PO PRN (12:57)
[2021-10-13] MEDS ORDERED: ACETAMINOPHEN 325 MG TABLET (FP) PO PRN (12:57)
[2021-10-13 17:29] LABS: HEMATOCRIT 42.9 % (32.4-45.2); HEMOGLOBIN 14.4 GM/dL (10.7-15.3); MCH 30.7 pg (25.7-33.7); MCHC 33.7 g/dl (32.0-36.0); MEAN CELL VOLUME 91.1 fl (80-96); MEAN PLT VOLUME 9.7 fl (7.5-11.1); PLATELET COUNT 266 10^3/uL (134-434); RBC 4.71 M/mm3 (3.60-5.2); RDW 13.6 % (11.6-15.6); WHITE BLOOD COUNT 9.3 K/mm3 (4.0-10.0)
[2021-10-13 17:32] LABS: CALCIUM 9.6 mg/dL (8.5-10.1)
[2021-10-13 17:33] LABS: ALBUMIN 4.2 g/dl (3.4-5.0); BLOOD UREA NITROGEN 10.3 mg/dL (7-18)
[2021-10-13 17:34] LABS: CREATININE 0.9 mg/dL (0.55-1.3)
[2021-10-13] MEDS ORDERED: hydrOXYzine PAMOATE 25 MG CAPSULE (FP) PO ONE (17:34)
[2021-10-13 17:36] LABS: BILIRUBIN,TOTAL 0.4 mg/dL (0.2-1); TOT PROT 7.4 g/dl (6.4-8.2)
[2021-10-13] MEDS: hydrOXYzine PAMOATE 25 MG CAPSULE (FP) PO SCH ×3 (17:36→21:22)
[2021-10-13] MEDS: PRENATAL VITAMINS W/ FOLIC ACID TABLET (FP) PO SCH (20:59)
[2021-10-13] MEDS: NICOTINE 7 MG/24 HOURS TOPICAL PATCH TD SCH (20:59)
[2021-10-13] MEDS: MELATONIN 5 MG TABLETS PO SCH (21:22)
[2021-10-13] MEDS: THIAMINE HCL 100 MG TABLET (FP) PO SCH (21:22)
[2021-10-13] MEDS: clonazePAM 0.5 MG ODT TABLETS SL PRN (21:23)
[2021-10-13] MEDS ORDERED: TUBERCULIN PPD 5 TU/0.1ML VIAL ID ONE (22:25)
[2021-10-13] MEDS ORDERED: METHOCARBAMOL 500 MG TABLET PO ONE (23:30)
[2021-10-14] MEDS: hydrOXYzine PAMOATE 25 MG CAPSULE (FP) PO SCH ×5 (06:46→21:25)
[2021-10-14] MEDS ORDERED: TRIMETHOBENZAMIDE HCL 200MG/2ML INJ IM ONE (07:30)
[2021-10-14] MEDS ORDERED: methaDONE HCL 10 MG TABLET PO SCH (07:45)
[2021-10-14] MEDS: IBUPROFEN 400 MG TABLET (FP) PO PRN (08:39)
[2021-10-14] MEDS: NICOTINE 7 MG/24 HOURS TOPICAL PATCH TD SCH (10:17)
[2021-10-14] MEDS: NICOTINE 10 MG CARTRIDGE (INHALER) IH PRN ×2 (10:17→21:28)
[2021-10-14] MEDS: PRENATAL VITAMINS W/ FOLIC ACID TABLET (FP) PO SCH (10:17)
[2021-10-14] MEDS: clonazePAM 0.5 MG ODT TABLETS SL PRN ×2 (10:18→21:25)
[2021-10-14] MEDS ORDERED: ONDANSETRON *ODT* 4 MG TABLET SL PRN (11:01)
[2021-10-14 14:23] LABS: SYPHILIS W/ RPR CONF NON-REACTIVE (NONREACTIVE)
[2021-10-14 14:58] LABS: PH,URINE 7.5 (5.0-8.0); URINE APPEARANCE TURBID; URINE BILIRUBIN NEGATIVE (NEGATIVE); URINE COLOR YELLOW; URINE GLUCOSE (UA) NEGATIVE (NEGATIVE); URINE KETONE NEGATIVE (NEGATIVE); URINE LEUK ESTERASE NEGATIVE (NEGATIVE); URINE NITRITE NEGATIVE (NEGATIVE); URINE PROTEIN NEGATIVE (NEGATIVE); URINE UROBILINOGEN 0.2 mg/dL (0.2-1.0)
[2021-10-14] MEDS: MELATONIN 5 MG TABLETS PO SCH (21:23)
[2021-10-14] MEDS: THIAMINE HCL 100 MG TABLET (FP) PO SCH (21:25)
[2021-10-14] MEDS: METHOCARBAMOL 500 MG TABLET PO PRN (21:25)
[2021-10-14] MEDS: QUEtiapine FUMARATE 200 MG TABLET PO SCH (21:27)
[2021-10-15] MEDS ORDERED: methaDONE HCL 10 MG TABLET PO SCH (06:00)
[2021-10-15] MEDS: hydrOXYzine PAMOATE 25 MG CAPSULE (FP) PO SCH ×5 (06:04→21:32)
[2021-10-15] MEDS: methaDONE HCL 10 MG TABLET PO SCH (06:04)
[2021-10-15] MEDS: NICOTINE 7 MG/24 HOURS TOPICAL PATCH TD SCH (10:30)
[2021-10-15] MEDS: PRENATAL VITAMINS W/ FOLIC ACID TABLET (FP) PO SCH (10:30)
[2021-10-15] MEDS: clonazePAM 0.5 MG ODT TABLETS SL PRN ×2 (10:31→21:33)
[2021-10-15] MEDS: FLUoxetine HCL 10 MG CAPSULE PO SCH (10:31)
[2021-10-15] MEDS: NICOTINE 10 MG CARTRIDGE (INHALER) IH PRN ×2 (10:32→17:02)
[2021-10-15] MEDS: MELATONIN 5 MG TABLETS PO SCH (21:32)
[2021-10-15] MEDS: QUEtiapine FUMARATE 200 MG TABLET PO SCH (21:32)
[2021-10-15] MEDS: THIAMINE HCL 100 MG TABLET (FP) PO SCH (21:37)
[2021-10-16] MEDS: methaDONE HCL 10 MG TABLET PO SCH (06:46)
[2021-10-16] MEDS: hydrOXYzine PAMOATE 25 MG CAPSULE (FP) PO SCH ×5 (06:46→21:35)
[2021-10-16] MEDS: NICOTINE 10 MG CARTRIDGE (INHALER) IH PRN ×4 (09:13→21:34)
[2021-10-16] MEDS: PRENATAL VITAMINS W/ FOLIC ACID TABLET (FP) PO SCH (10:19)
[2021-10-16] MEDS: clonazePAM 0.5 MG ODT TABLETS SL PRN ×2 (10:20→21:35)
[2021-10-16] MEDS: FLUoxetine HCL 10 MG CAPSULE PO SCH (10:20)
[2021-10-16] MEDS: NICOTINE 7 MG/24 HOURS TOPICAL PATCH TD SCH (10:20)
[2021-10-16] MEDS: METHOCARBAMOL 500 MG TABLET PO PRN ×2 (12:25→21:35)
[2021-10-16] MEDS: IBUPROFEN 400 MG TABLET (FP) PO PRN (12:25)
[2021-10-16] MEDS: THIAMINE HCL 100 MG TABLET (FP) PO SCH (21:35)
[2021-10-16] MEDS: MELATONIN 5 MG TABLETS PO SCH (21:38)
[2021-10-16] MEDS: QUEtiapine FUMARATE 200 MG TABLET PO SCH (21:38)
[2021-10-17] MEDS: methaDONE HCL 10 MG TABLET PO SCH (06:28)
[2021-10-17] MEDS: hydrOXYzine PAMOATE 25 MG CAPSULE (FP) PO SCH ×5 (06:28→21:37)
[2021-10-17] MEDS: FLUoxetine HCL 10 MG CAPSULE PO SCH (10:20)
[2021-10-17] MEDS: PRENATAL VITAMINS W/ FOLIC ACID TABLET (FP) PO SCH (10:20)
[2021-10-17] MEDS: NICOTINE 7 MG/24 HOURS TOPICAL PATCH TD SCH (10:21)
[2021-10-17] MEDS: NICOTINE 10 MG CARTRIDGE (INHALER) IH PRN ×3 (10:22→21:39)
[2021-10-17] MEDS: clonazePAM 0.5 MG ODT TABLETS SL PRN ×2 (10:24→21:37)
[2021-10-17] MEDS: METHOCARBAMOL 500 MG TABLET PO PRN (17:01)
[2021-10-17] MEDS: QUEtiapine FUMARATE 200 MG TABLET PO SCH (21:37)
[2021-10-17] MEDS: MELATONIN 5 MG TABLETS PO SCH (21:38)
[2021-10-17] MEDS: THIAMINE HCL 100 MG TABLET (FP) PO SCH (21:38)
[2021-10-18] MEDS: methaDONE HCL 10 MG TABLET PO SCH (06:44)
[2021-10-18] MEDS: hydrOXYzine PAMOATE 25 MG CAPSULE (FP) PO SCH ×5 (06:44→21:40)
[2021-10-18] MEDS: FLUoxetine HCL 10 MG CAPSULE PO SCH (10:15)
[2021-10-18] MEDS: PRENATAL VITAMINS W/ FOLIC ACID TABLET (FP) PO SCH (10:15)
[2021-10-18] MEDS: NICOTINE 7 MG/24 HOURS TOPICAL PATCH TD SCH (10:17)
[2021-10-18] MEDS: NICOTINE 10 MG CARTRIDGE (INHALER) IH PRN ×4 (10:17→21:40)
[2021-10-18] MEDS: clonazePAM 0.5 MG ODT TABLETS SL PRN ×2 (10:19→21:38)
[2021-10-18] MEDS: METHOCARBAMOL 500 MG TABLET PO PRN ×2 (15:03→21:39)
[2021-10-18] MEDS: MELATONIN 5 MG TABLETS PO SCH (21:37)
[2021-10-18] MEDS: THIAMINE HCL 100 MG TABLET (FP) PO SCH (21:39)
[2021-10-18] MEDS: QUEtiapine FUMARATE 200 MG TABLET PO SCH (21:39)
[2021-10-19] MEDS: methaDONE HCL 10 MG TABLET PO SCH (06:15)
[2021-10-19] MEDS: hydrOXYzine PAMOATE 25 MG CAPSULE (FP) PO SCH ×5 (06:16→21:47)
[2021-10-19] MEDS: NICOTINE 10 MG CARTRIDGE (INHALER) IH PRN ×5 (06:17→21:52)
[2021-10-19] MEDS: PRENATAL VITAMINS W/ FOLIC ACID TABLET (FP) PO SCH (10:32)
[2021-10-19] MEDS: FLUoxetine HCL 10 MG CAPSULE PO SCH (10:33)
[2021-10-19] MEDS: NICOTINE 7 MG/24 HOURS TOPICAL PATCH TD SCH (10:34)
[2021-10-19] MEDS: METHOCARBAMOL 500 MG TABLET PO PRN ×2 (10:35→21:47)
[2021-10-19] MEDS: IBUPROFEN 400 MG TABLET (FP) PO PRN (19:19)
[2021-10-19] MEDS: THIAMINE HCL 100 MG TABLET (FP) PO SCH (21:47)
[2021-10-19] MEDS: MELATONIN 5 MG TABLETS PO SCH (21:48)
[2021-10-19] MEDS: clonazePAM 0.5 MG ODT TABLETS SL PRN (21:50)
[2021-10-19] MEDS: QUEtiapine FUMARATE 100 MG TABLET (FP) PO SCH (21:53)
[2021-10-20] MEDS: hydrOXYzine PAMOATE 25 MG CAPSULE (FP) PO SCH ×5 (06:33→21:52)
[2021-10-20] MEDS: methaDONE HCL 10 MG TABLET PO SCH (06:33)
[2021-10-20] MEDS: NICOTINE 10 MG CARTRIDGE (INHALER) IH PRN ×3 (08:56→20:21)
[2021-10-20] MEDS: PRENATAL VITAMINS W/ FOLIC ACID TABLET (FP) PO SCH (10:43)
[2021-10-20] MEDS: NICOTINE 7 MG/24 HOURS TOPICAL PATCH TD SCH (10:43)
[2021-10-20] MEDS: FLUoxetine HCL 10 MG CAPSULE PO SCH (10:44)
[2021-10-20] MEDS: clonazePAM 0.5 MG ODT TABLETS SL PRN ×2 (10:45→21:52)
[2021-10-20] MEDS: METHOCARBAMOL 500 MG TABLET PO PRN ×2 (15:50→21:52)
[2021-10-20] MEDS: MELATONIN 5 MG TABLETS PO SCH (21:52)
[2021-10-20] MEDS: QUEtiapine FUMARATE 100 MG TABLET (FP) PO SCH (21:52)
[2021-10-20] MEDS: THIAMINE HCL 100 MG TABLET (FP) PO SCH (21:52)
[2021-10-21] MEDS: methaDONE HCL 10 MG TABLET PO SCH (06:39)
[2021-10-21] MEDS: hydrOXYzine PAMOATE 25 MG CAPSULE (FP) PO SCH ×5 (06:39→21:23)
[2021-10-21] MEDS: clonazePAM 0.5 MG ODT TABLETS SL PRN ×2 (10:13→21:24)
[2021-10-21] MEDS: FLUoxetine HCL 10 MG CAPSULE PO SCH (10:13)
[2021-10-21] MEDS: PRENATAL VITAMINS W/ FOLIC ACID TABLET (FP) PO SCH (10:13)
[2021-10-21] MEDS: NICOTINE 7 MG/24 HOURS TOPICAL PATCH TD SCH (10:14)
[2021-10-21] MEDS: NICOTINE 10 MG CARTRIDGE (INHALER) IH PRN ×3 (10:14→20:11)
[2021-10-21] MEDS: METHOCARBAMOL 500 MG TABLET PO PRN ×2 (10:15→21:24)
[2021-10-21] MEDS: THIAMINE HCL 100 MG TABLET (FP) PO SCH (21:24)
[2021-10-21] MEDS: QUEtiapine FUMARATE 100 MG TABLET (FP) PO SCH (21:24)
[2021-10-21] MEDS: MELATONIN 5 MG TABLETS PO SCH (21:24)
[2021-10-22] MEDS: methaDONE HCL 10 MG TABLET PO SCH (06:48)
[2021-10-22] MEDS: hydrOXYzine PAMOATE 25 MG CAPSULE (FP) PO SCH ×5 (06:49→21:15)
[2021-10-22] MEDS: NICOTINE 10 MG CARTRIDGE (INHALER) IH PRN ×2 (10:07→20:06)
[2021-10-22] MEDS: FLUoxetine HCL 10 MG CAPSULE PO SCH (10:07)
[2021-10-22] MEDS: PRENATAL VITAMINS W/ FOLIC ACID TABLET (FP) PO SCH (10:07)
[2021-10-22] MEDS: NICOTINE 7 MG/24 HOURS TOPICAL PATCH TD SCH (10:07)
[2021-10-22] MEDS: clonazePAM 0.5 MG ODT TABLETS SL PRN (10:07)
[2021-10-22] MEDS: METHOCARBAMOL 500 MG TABLET PO PRN ×2 (10:08→21:16)
[2021-10-22] MEDS: clonazePAM 0.5 MG ODT TABLETS SL SCH ×2 (10:44→21:56)
[2021-10-22] MEDS: IBUPROFEN 400 MG TABLET (FP) PO PRN (12:33)
[2021-10-22] MEDS: THIAMINE HCL 100 MG TABLET (FP) PO SCH (21:15)
[2021-10-22] MEDS: QUEtiapine FUMARATE 100 MG TABLET (FP) PO SCH (21:16)
[2021-10-22] MEDS: MELATONIN 5 MG TABLETS PO SCH (21:16)
[2021-10-23] MEDS: methaDONE HCL 10 MG TABLET PO SCH (06:26)
[2021-10-23] MEDS: hydrOXYzine PAMOATE 25 MG CAPSULE (FP) PO SCH ×5 (06:26→22:08)
[2021-10-23] MEDS: NICOTINE 7 MG/24 HOURS TOPICAL PATCH TD SCH (09:51)
[2021-10-23] MEDS: clonazePAM 0.5 MG ODT TABLETS SL SCH ×2 (09:51→21:48)
[2021-10-23] MEDS: FLUoxetine HCL 10 MG CAPSULE PO SCH (09:51)
[2021-10-23] MEDS: PRENATAL VITAMINS W/ FOLIC ACID TABLET (FP) PO SCH (09:52)
[2021-10-23] MEDS: NICOTINE 10 MG CARTRIDGE (INHALER) IH PRN ×3 (10:32→22:08)
[2021-10-23] MEDS ORDERED: COLLOIDAL OATMEAL 1 BAR EACH TP PRN (11:50)
[2021-10-23] MEDS: METHOCARBAMOL 500 MG TABLET PO PRN ×2 (13:02→19:49)
[2021-10-23] MEDS: QUEtiapine FUMARATE 100 MG TABLET (FP) PO SCH (21:48)
[2021-10-23] MEDS: THIAMINE HCL 100 MG TABLET (FP) PO SCH (21:48)
[2021-10-23] MEDS: MELATONIN 5 MG TABLETS PO SCH (21:48)
[2021-10-23] MEDS: TOLNAFTATE 1% CREAM 15 GM TUBE TP SCH (22:12)
[2021-10-24] MEDS: hydrOXYzine PAMOATE 25 MG CAPSULE (FP) PO SCH ×5 (06:48→21:46)
[2021-10-24] MEDS: methaDONE HCL 10 MG TABLET PO SCH (06:48)
[2021-10-24] MEDS: NICOTINE 10 MG CARTRIDGE (INHALER) IH PRN ×4 (06:51→21:46)
[2021-10-24] MEDS: FLUoxetine HCL 10 MG CAPSULE PO SCH (10:34)
[2021-10-24] MEDS: clonazePAM 0.5 MG ODT TABLETS SL SCH ×2 (10:34→21:46)
[2021-10-24] MEDS: PRENATAL VITAMINS W/ FOLIC ACID TABLET (FP) PO SCH (10:34)
[2021-10-24] MEDS: TOLNAFTATE 1% CREAM 15 GM TUBE TP SCH ×2 (10:37→21:46)
[2021-10-24] MEDS: NICOTINE 7 MG/24 HOURS TOPICAL PATCH TD SCH (10:59)
[2021-10-24] MEDS: IBUPROFEN 400 MG TABLET (FP) PO PRN (11:04)
[2021-10-24] MEDS: METHOCARBAMOL 500 MG TABLET PO PRN ×2 (15:56→21:46)
[2021-10-24] MEDS: THIAMINE HCL 100 MG TABLET (FP) PO SCH (21:46)
[2021-10-24] MEDS: QUEtiapine FUMARATE 100 MG TABLET (FP) PO SCH (21:46)
[2021-10-24] MEDS: MELATONIN 5 MG TABLETS PO SCH (21:46)
[2021-10-25] MEDS: NICOTINE 10 MG CARTRIDGE (INHALER) IH PRN ×4 (06:46→22:48)
[2021-10-25] MEDS: hydrOXYzine PAMOATE 25 MG CAPSULE (FP) PO SCH ×5 (06:47→22:47)
[2021-10-25] MEDS: methaDONE HCL 10 MG TABLET PO SCH (06:47)
[2021-10-25] MEDS: clonazePAM 0.5 MG ODT TABLETS SL SCH ×2 (10:24→22:47)
[2021-10-25] MEDS: PRENATAL VITAMINS W/ FOLIC ACID TABLET (FP) PO SCH (10:24)
[2021-10-25] MEDS: NICOTINE 7 MG/24 HOURS TOPICAL PATCH TD SCH (10:24)
[2021-10-25] MEDS: FLUoxetine HCL 10 MG CAPSULE PO SCH (10:25)
[2021-10-25] MEDS: TOLNAFTATE 1% CREAM 15 GM TUBE TP SCH ×2 (10:25→22:47)
[2021-10-25] MEDS: IBUPROFEN 400 MG TABLET (FP) PO PRN ×2 (10:27→22:47)
[2021-10-25] MEDS: METHOCARBAMOL 500 MG TABLET PO PRN ×2 (10:27→17:53)
[2021-10-25] MEDS: MELATONIN 5 MG TABLETS PO SCH (22:47)
[2021-10-25] MEDS: QUEtiapine FUMARATE 100 MG TABLET (FP) PO SCH (22:47)
[2021-10-25] MEDS: THIAMINE HCL 100 MG TABLET (FP) PO SCH (22:47)
[2021-10-26] MEDS: methaDONE HCL 10 MG TABLET PO SCH (06:21)
[2021-10-26] MEDS: hydrOXYzine PAMOATE 25 MG CAPSULE (FP) PO SCH ×5 (06:21→21:21)
[2021-10-26] MEDS: NICOTINE 10 MG CARTRIDGE (INHALER) IH PRN ×4 (08:03→21:24)
[2021-10-26] MEDS: FLUoxetine HCL 10 MG CAPSULE PO SCH (09:05)
[2021-10-26] MEDS: PRENATAL VITAMINS W/ FOLIC ACID TABLET (FP) PO SCH (09:05)
[2021-10-26] MEDS: NICOTINE 7 MG/24 HOURS TOPICAL PATCH TD SCH (09:05)
[2021-10-26] MEDS: METHOCARBAMOL 500 MG TABLET PO PRN ×2 (09:05→17:19)
[2021-10-26] MEDS: TOLNAFTATE 1% CREAM 15 GM TUBE TP SCH ×2 (09:06→21:21)
[2021-10-26] MEDS: clonazePAM 0.5 MG ODT TABLETS SL SCH (10:23)
[2021-10-26] MEDS: IBUPROFEN 400 MG TABLET (FP) PO PRN (12:42)
[2021-10-26] MEDS: THIAMINE HCL 100 MG TABLET (FP) PO SCH (21:21)
[2021-10-26] MEDS: MELATONIN 5 MG TABLETS PO SCH (21:21)
[2021-10-26] MEDS: QUEtiapine FUMARATE 100 MG TABLET (FP) PO SCH (21:21)
[2021-10-27] MEDS: clonazePAM 0.5 MG ODT TABLETS SL SCH ×2 (00:09→10:02)
[2021-10-27] MEDS: methaDONE HCL 10 MG TABLET PO SCH (06:20)
[2021-10-27] MEDS: hydrOXYzine PAMOATE 25 MG CAPSULE (FP) PO SCH ×2 (06:21→10:07)
[2021-10-27] MEDS: NICOTINE 10 MG CARTRIDGE (INHALER) IH PRN (06:59)
[2021-10-27] MEDS: METHOCARBAMOL 500 MG TABLET PO PRN (07:00)
[2021-10-27 07:21] VITALS: BP 108/60; PULSE 69; TEMP 98.6
[2021-10-27] MEDS: NICOTINE 7 MG/24 HOURS TOPICAL PATCH TD SCH (10:02)
[2021-10-27] MEDS: FLUoxetine HCL 10 MG CAPSULE PO SCH (10:02)
[2021-10-27] MEDS: TOLNAFTATE 1% CREAM 15 GM TUBE TP SCH (10:03)
[2021-10-27] MEDS: PRENATAL VITAMINS W/ FOLIC ACID TABLET (FP) PO SCH (10:03)
== END 2021-10-27 10:11 | disposition home or self-care (01) | DRG 772 ==
LOC: YASAS 10:07 → Y5N 18:27
PROVIDERS: ADMIT Allergy & Immunology; ATTEND Psychiatry & Neurology Pain Medicine
PROC: HZ42ZZZ Group Counseling for Substance Abuse Treatment, Cognitive-Behavioral (ICD-10-PCS; principal; 2021-10-13)
DX: F11.20 Opioid dependence, uncomplicated (principal); F10.20 Alcohol dependence, uncomplicated; F13.20 Sedative, hypnotic or anxiolytic dependence, uncomplicated; F14.10 Cocaine abuse, uncomplicated; F17.210 Nicotine dependence, cigarettes, uncomplicated; F19.282 Other psychoactive substance dependence with psychoactive substance-induced sleep disorder; F19.280 Other psychoactive substance dependence with psychoactive substance-induced anxiety disorder; F19.24 Other psychoactive substance dependence with psychoactive substance-induced mood disorder; F31.9 Bipolar disorder, unspecified; F41.8 Other specified anxiety disorders; F43.10 Post-traumatic stress disorder, unspecified; F95.2 Tourette's disorder; M54.50 Low back pain, unspecified; G89.29 Other chronic pain; Z62.810 Personal history of physical and sexual abuse in childhood; Z28.310 Unvaccinated for COVID-19; Z88.0 Allergy status to penicillin
CPT/HCPCS: 36415; 80053; 81003; 81025; 85027; 86780; 86803; C9803-CS; U0003; U0005